=== PATIENT | male | born 1960 | race African-American/Black ===

== ENCOUNTER 2022-07-10 08:00 | Day surgery (SDC) | payer MEDICARE, OTHER ==
[2022-07-06 12:10] VITALS: BMI 25.1
[2022-07-10] MEDS ORDERED: Vancomycin 1 GM VIAL ONE (11:09)
[2022-07-10] MEDS ORDERED: fentaNYL PF 100 MCG/2 ML SYRINGE ONE (11:14)
[2022-07-10] MEDS ORDERED: CEFAZOLIN 2 GM VIAL ONE (11:27)
[2022-07-10] MEDS ORDERED: Sodium Chloride 0.9% 100 ML ONE (11:27)
[2022-07-10] MEDS ORDERED: PROPOFOL 200 MG/20 ML VIAL ONE (11:55)
[2022-07-10] MEDS ORDERED: Glycopyrrolate 0.2 MG/ML 5 ML SYRINGE ONE (11:55)
[2022-07-10] MEDS ORDERED: ePHEDrine Sulfate 50 MG/10 ML VIAL ONE (11:55)
[2022-07-10] MEDS ORDERED: Lidocaine 1% PF 5 ML VIAL ONE (11:55)
[2022-07-10] MEDS ORDERED: NEOSTIGMINE 3 MG/3 ML SYR 3 MG/3 ML SYRINGE ONE (11:55)
[2022-07-10] MEDS ORDERED: Rocuronium Bromide 10 MG/ML (10ML VIAL) ONE (11:55)
[2022-07-10] MEDS ORDERED: Ondansetron PF 4 MG/2 ML Vial ONE (11:55)
[2022-07-10] MEDS ORDERED: PHENYLEPHRINE-NS 100 MCG/ML 10 ML SYRINGE ONE (11:55)
[2022-07-10] MEDS ORDERED: fentaNYL 50 mcg/mL 1 mL Vial ONE ×4 (13:44→14:52)
[2022-07-10] MEDS ORDERED: HYDROmorphone 0.5 MG/0.5 ML SYRINGE ONE ×3 (14:24→15:09)
[2022-07-10] MEDS ORDERED: HYDROcodone/Acetaminophen 5/325 mg Tablet ONE (16:09)
[2022-07-10] MEDS ORDERED: Labetalol HCl 100 MG/20 ML VIAL ONE (16:54)
== END 2022-07-10 17:25 | disposition home or self-care (01) ==
LOC: SDC 08:00
PROVIDERS: ATTEND Neurological Surgery
PROC: 0SG30AJ Fusion of Lumbosacral Joint with Interbody Fusion Device, Posterior Approach, Anterior Column, Open Approach (ICD-10-PCS; principal; 2022-07-10)
DX: M51.17 Intervertebral disc disorders with radiculopathy, lumbosacral region (principal); I10 Essential (primary) hypertension; E78.5 Hyperlipidemia, unspecified; G89.29 Other chronic pain; Z79.899 Other long term (current) drug therapy
CPT/HCPCS: 93005; 93010; C1713; C1768; C1776; C1889; J1170; J2405; J2704; J3010; J3370; J3490